=== PATIENT | male | born 1985 | race Caucasian/White ===

== ENCOUNTER 2017-11-23 12:45 | Emergency (ER) | payer OTHER, SELFPAY ==
[2017-11-23 12:46] VITALS: BP 152/95; PULSE 109; RESP 18; TEMP 36.5; O2SAT 99; BMI 30.8
--- NOTE | 2017-11-23 15:28 | ED.VISSUMM ---
- ER Visit Summary Date of Service: 11/23/17 Chief Complaint: Right axillary abscess History of Present Illness: The patient is a 32 M no senior past medical or surgical history. Currently on no medications. States she has had a right axillary abscess for the last 2-3 days. No fever. Complaining of pain. Physical Examination: Well-appearing young male. Vital signs are stable afebrile. No acute distress. HEENT exam unremarkable. Neck nontender. Lungs clear to auscultation bilaterally. Heart regular rhythm no murmur. Abdomen soft nontender. Moving all 4 extremities. Neurovascularly intact. Calves nontender, no edema no cords. Right axilla is a moderate size absess that is tender and fluctuant. Test Results: None Emergency Department Course and Treatment: Let applied to the abscess. Then locally anesthetized with 1% lidocaine. Made a 1 inch incision breast blood and some pus. Only about 1 cc of pus. Loculations were broken out. And several inches of 1 inch packing gauze were placed. Patient tolerated procedure well. He was instructed on wound care. And remove the packing in 4-5 days. Treatment Plan: Keflex 4 times daily for 10 days. Bactrim DS p.o. twice daily for 10 days. Motrin limited Moran for pain. Disposition: Discharge Impression: Right axillary abscess Incision and drainage by ER This note was generated with [employer] dictation software. It may contain incorrect words, spelling, and punctuation that were not noted in review of the chart prior to signing ED Disposition - Plan for ED Patient: Chief Complaint: Abscess Referrals: Care Physician,No Primary [Primary Care Provider] -
[2017-11-23] MEDS: HYDROcodone Bitartrate/Apap 5/325 Tablet PO (15:31)
[2017-11-23] MEDS: Lidocaine/Epi/Tetracaine 50 ML 1 APPLIC TOPICAL (15:32)
--- NOTE | 2017-11-23 17:36 | ED.DEP ---
ED Disposition - Plan for ED Patient: Disposition: Home or Assisted Living Chief Complaint: Abscess Instructions: ED Abscess IandD Prescriptions: Cephalexin [Keflex] 500 mg PO Q6 #40 cap Hydrocodone/Acetaminophen [[place] 5-325 Tablet] 1 - 2 ea PO 4X/DAY PRN PRN 3 Days #12 tab PRN Reason: Pain Smz/Tmp Ds [Bactrim Ds] 1 tab PO BID #20 tab Referrals: Care Physician,No Primary [Primary Care Provider] - Additional Instructions: See her primary care physician. Full packing out in 4 days. Charlotte and Motrin for pain. Warm compresses or hot shower to the area. Return if doing worse. Keflex 4 times a day and Bactrim twice a day to resolve the infection.
[2017-11-23 17:41] VITALS: BP 140/57; PULSE 62; RESP 15; O2SAT 97
== END 2017-11-23 17:42 | disposition home or self-care (01) ==
PROVIDERS: Emergency Provider Emergency Medicine
DX: L02.411 Cutaneous abscess of right axilla (principal); Z72.0 Tobacco use
CPT/HCPCS: 10060; 99283